=== PATIENT | female | born 1995 | race Caucasian/White ===

== ENCOUNTER 2017-09-06 06:23 | Emergency (ER) | payer OTHER ==
[~2017-09-06] VITALS: Ht 157.5 cm; Wt 57.0 kg
[2017-09-06 06:24] VITALS: Ht 157.5 cm; Wt 57.0 kg
--- NOTE | 2017-09-06 06:47 | ERD ---
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 The patient states that she was just finishing injecting the patient's subcu abdomen with a 24-gauge insulin needle and the patient jerked his right leg, causing the needle to stick her right index finger at the lateral aspect of it. Patient said she did bleed. She said that she made sure finger bled a lot and she cleaned it extensively. The patient is admitted to the hospital for cellulitis ROS All systems reviewed and are negative except as per history of present illness. PMhx/Soc Medical and Surgical Hx: pt denies Medical Hx, pt denies Surgical Hx Hx Alcohol Use: Yes Hx Substance Use: No Hx Tobacco Use: No Smoking Status: Never smoker FmHx Family History: No coronary disease Physical Exam Vitals Vital Signs Date Time Temp Pulse Resp B/P Pulse Ox O2 Delivery O2 Flow Rate FiO2 09/06/17 06:24 98.0 72 18 138/81 99 Physical Exam Const: Well-developed, well-nourished Head: Atraumatic, normocephalic Eyes: Normal Conjunctiva, PERRLA, EOMI, normal sclera, no nystagmus ENT: Normal External Ears, Nose and Mouth, moist mucus membranes. Neck: Full range of motion. No meningismus, no lymphadenopathy. Resp: Clear to auscultation bilaterally, no wheezing, rhonchi, rales Cardio: Regular rate and rhythm, no murmurs, S1 S2 present Abd: Soft, non tender x 4, non distended. Normal bowel sounds, no guarding or rebound, no pulsitile abdominal masses or bruits Skin: No petechiae or rashes, no ecchymosis , no maculopapular rash, the right index finger has a small punctate red dots where the needle went in Back: No midline or flank tenderness Ext: No cyanosis, or edema, FROM x 4, normal inspection, neurovascularly intact x 4 Neur: Awake and alert, STR 5/5 x 4, sensation intact x 4, no focal findings, cerebellum intact Psych: Normal Mood and Affect Procedures/MDM Patient will have baseline labs drawn and the source will be tested as well Departure Diagnosis: Primary Impression: Needlestick injury accident Encounter type: initial encounter Qualified Code: W27.3XXA - Needlestick injury accident, initial encounter Condition: Stable Patient Instructions: Standard Precautions: [place] and Other Sharps Referrals: NO PRIMARY,CARE PHYSICIAN (PCP) SANCHEZ DIAZ DO Sep 06, 2017 06:47
[2017-09-06 07:34] LABS: BASOPHIL # 0.1 10^3/ul (0.0-0.1); BASOPHILS % 1.4 % (0.0-2.0); EOSINOPHILS # 0.2 10^3/ul (0.0-0.5); EOSINOPHILS % 3.1 % (0.0-7.0); HEMATOCRIT 37.1 % (37.0-47.0); HEMOGLOBIN 12.2 g/dl (12.0-16.0); LYMPHOCYTES # 1.9 10^3/ul (0.8-2.9); LYMPHOCYTES % 36.4 % (15.0-51.0); MEAN CORPUSCULAR HEMOGLOBIN 30.7 pg (29.0-33.0); MEAN CORPUSCULAR HGB CONC 32.9 g/dl (32.0-37.0); MEAN CORPUSCULAR VOLUME 93.5 fl (82.0-101.0); MEAN PLATELET VOLUME 9.8 fl (7.4-10.4); MONOCYTE # 0.4 10^3/ul (0.3-0.9); MONOCYTES % 6.8 % (0.0-11.0); NEUTROPHIL # 2.7 10^3/ul (1.6-7.5); NEUTROPHILS % 52.3 % (39.0-77.0); PLATELET COUNT 327 10^3/UL (140-415); RED BLOOD COUNT 3.97 10^6/ul (4.20-5.40); RED CELL DISTRIBUTION WIDTH 11.6 % (11.5-14.5); WHITE BLOOD COUNT 5.2 10^3/ul (4.8-10.8)
[2017-09-06 08:09] LABS: ALANINE AMINOTRANSFERASE 24 IU/L (13-69); ALBUMIN 4.1 g/dl (3.3-4.9); ALKALINE PHOSPHATASE 49 IU/L (42-121); ASPARTATE AMINO TRANSFERASE 17 IU/L (15-46); BILIRUBIN,INDIRECT 0.4 mg/dl (0-1.1); BILIRUBIN,TOTAL 0.4 mg/dl (0.2-1.3); TOTAL PROTEIN 7.6 g/dl (6.1-8.1)
== END 2017-09-06 07:21 | disposition home or self-care (01) ==
LOC: E/R 06:23
DX: S61.230A Puncture wound without foreign body of right index finger without damage to nail, initial encounter (principal); W27.3XXA Contact with needle (sewing), initial encounter; Y92.89 Other specified places as the place of occurrence of the external cause
CPT/HCPCS: 80076; 85025; 86703; 86706; 86803; 87340; 99283